=== PATIENT | female | born 1960 | race African-American/Black ===

== ENCOUNTER 2025-02-24 09:04 | Emergency (ER) | payer OTHER ==
[~2025-02-24] VITALS: Ht 162.6 cm; Wt 81.0 kg
[2025-02-24 09:17] VITALS: TEMP 37.1
[2025-02-24] MEDS: IBUPROFEN 600MG TABLET PO ONE (10:48)
[2025-02-24] MEDS ORDERED: IBUP-1455 MT (11:32)
[2025-02-24 11:48] VITALS: BP 141/87; PULSE 85; RESP 16; O2SAT 100
== END 2025-02-24 11:51 | disposition home or self-care (01) ==
LOC: ER 09:04
DX: I10 Essential (primary) hypertension (principal); M19.012 Primary osteoarthritis, left shoulder; Z90.710 Acquired absence of both cervix and uterus
CPT/HCPCS: 73030; 99283